=== PATIENT | male | born 1965 | race Caucasian/White ===

== ENCOUNTER 2019-07-07 20:51 | Emergency (ER) | payer OTHER ==
[~2019-07-07] VITALS: Ht 180.3 cm; Wt 74.1 kg
--- NOTE | 2019-07-07 21:00 | NUR ---
PT TO ROOM 6 PER PEDIS. PT C/O LEFT RIB CAGE PAIN. PER PATIENT "I FELL THROUGH A SHOWER DOOR LAST WEEK. I WENT TO [place], THEY SOWED ME UP AND SENT ME ON MY WAY. I WENT BACK TODAY TO GET THE STICHES OUT, AND I TOLD THEM I STILL HURT, BUT THEY JUST SENT ME HOME. IT IS HURTING REAL BAD, BUT IT IS TO FAR FOR ME TO WALK BACK TO [facility] SO I CAME HERE." MD IN ROOM TO ASSESS PATIENT. ORDERS FOR XRAY OF RIBS, AND PO PAIN MEDICATIONS.
[2019-07-07] MEDS ORDERED: IBUPROFEN 600 MG TABLET PO ONE (21:30)
--- NOTE | 2019-07-07 21:55 | NUR ---
PT RETURNED FROM XRAY. PO PAIN MEDS GIVEN WITHOUT DIFF.
[2019-07-07] MEDS ORDERED: IBUPROFEN 600 MG TABLET ONE (21:56)
--- NOTE | 2019-07-07 22:38 | NUR ---
DISCHARGE INSTRUCTIONS GIVEN TO PATIENT WITH ONE PRESCRIPTION. PT VERBALIZES UNDERSTANDING OF ALL INSTRUCTIONS AND FOLLOW UP. PT AMBULATED OUT OF ED WITHOUT DIFF.
[2019-07-07 22:41] VITALS: BP 122/86
== END 2019-07-07 22:44 | disposition home or self-care (01) ==
LOC: ED 21:32
DX: S20.212A Contusion of left front wall of thorax, initial encounter (principal); R00.0 Tachycardia, unspecified; W19.XXXA Unspecified fall, initial encounter; Y93.89 Activity, other specified; Y92.488 Other paved roadways as the place of occurrence of the external cause; Y99.8 Other external cause status
CPT/HCPCS: 93005; 99283